=== PATIENT | male | born 1985 | race Caucasian/White ===

== ENCOUNTER 2019-05-06 18:30 | Emergency (ER) | payer OTHER ==
[~2019-05-06] VITALS: Ht 175.3 cm; Wt 88.0 kg
[2019-05-06 19:29] LABS: HEMATOCRIT 45.9 % (42.0-52.0); HEMOGLOBIN 16.1 gm/dL (14.0-18.0); MCH 31.6 pg (26.0-34.0); MCHC 35.1 g/dL (28.0-37.0); MPV 8.5 fl. (7.2-11.1); NUCLEATED RBCS 0 /100WBC; PLATELET COUNT* 238 thou/uL (150-400); RDW-CV 13.3 % (10.5-14.5); WBC 8.6 thou/uL (4.0-11.0)
[2019-05-06 19:47] LABS: CALCIUM 8.6 mg/dL (8.5-10.1); CREATININE 1.2 mg/dL (0.6-1.3); POTASSIUM 4.8 mmol/L (3.5-5.1)
[2019-05-06 19:52] LABS: ALBUMIN 3.8 g/dL (3.4-5.0); TOTAL BILIRUBIN 0.9 mg/dL (<0.1-1.0); TOTAL PROTEIN 7.2 g/dL (6.4-8.2)
[2019-05-06 19:57] LABS: ABSOLUTE LYMPHOCYTES 0.7 thou/uL (0.8-5.3); ABSOLUTE MONOCYTES 0.1 thou/uL (0.0-1.2); ABSOLUTE NEUTROPHILS 7.8 thou/uL (1.6-8.1); ATYPICAL LYMPHS 3 %; PLATELET ESTIMATE ADEQUATE
[2019-05-06] MEDS ORDERED: PREDNISONE 20 M20 MG PO (20:10)
[2019-05-06 20:22] VITALS: BP 135/75
[2019-05-07] MEDS ORDERED: EPIPEN0.3 MG/0.1 IM (15:55)
[2019-05-07] MEDS ORDERED: PEPCID20 MG PO (15:55)
== END 2019-05-06 20:23 | disposition home or self-care (01) ==
LOC: M.ERS 18:30
PROVIDERS: Physician Assistant
DX: L50.9 Urticaria, unspecified (principal)

== ENCOUNTER 2019-05-07 14:34 | Emergency (ER) | payer OTHER ==
[~2019-05-07] VITALS: Ht 175.3 cm; Wt 88.0 kg
[~2019-05-07 14:34] MED LIST: PREDNISONE 20 M20 MG PO
[2019-05-07 15:21] LABS: HEMATOCRIT 45.4 % (42.0-52.0); HEMOGLOBIN 15.8 gm/dL (14.0-18.0); MCH 31.4 pg (26.0-34.0); MCHC 34.8 g/dL (28.0-37.0); MCV 90.2 fL (80.0-100.0); MPV 8.5 fl. (7.2-11.1); NUCLEATED RBCS 0 /100WBC; PLATELET COUNT* 295 thou/uL (150-400); RBC 5.04 mil/uL (4.50-6.00); RDW-CV 13.6 % (10.5-14.5); WBC 14.9 thou/uL (4.0-11.0)
[2019-05-07 15:29] LABS: CALCIUM 9.2 mg/dL (8.5-10.1); CREATININE 1.1 mg/dL (0.6-1.3); POTASSIUM 4.1 mmol/L (3.5-5.1)
[2019-05-07 15:37] LABS: ALBUMIN 3.9 g/dL (3.4-5.0); TOTAL BILIRUBIN 0.7 mg/dL (<0.1-1.0); TOTAL PROTEIN 7.5 g/dL (6.4-8.2)
[2019-05-07 15:47] LABS: ABSOLUTE LYMPHOCYTES 0.6 thou/uL (0.8-5.3); ABSOLUTE MONOCYTES 0.4 thou/uL (0.0-1.2); ABSOLUTE NEUTROPHILS 13.9 thou/uL (1.6-8.1); PLATELET ESTIMATE ADEQUATE
[2019-05-07] MEDS ORDERED: EPIPEN0.3 MG/0.1 IM (15:55)
[2019-05-07] MEDS ORDERED: PEPCID20 MG PO (15:55)
[2019-05-07 16:02] VITALS: BP 125/77
== END 2019-05-07 16:02 | disposition home or self-care (01) ==
LOC: M.ERS 14:34
PROVIDERS: Emergency Medicine
DX: R21 Rash and other nonspecific skin eruption (principal); T38.0X5A Adverse effect of glucocorticoids and synthetic analogues, initial encounter; R42 Dizziness and giddiness; Y92.89 Other specified places as the place of occurrence of the external cause; Z86.14 Personal history of Methicillin resistant Staphylococcus aureus infection